=== PATIENT | male | born 1945 | race Caucasian/White ===

== ENCOUNTER → 2018-11-14 12:39 | Outpatient (CLI) | payer OTHER, SELFPAY ==
--- NOTE | 2018-11-14 | DI.ECHO.S_ITS ---
[place] +---------+ [facility] +---------+ : : [address] : [address] : : : : [id number] : : : : Phone: [phone]+ Echocardiogram Report + + :Name: RADHA GARCIA Study Date: 11/14/2018 Height: 69 in : :[facility] Exam Location: [facility] Weight: 177 lb : : Gender: Male BSA: 2.0 m2 : :: 1945 Age: 73 yrs BP: 135/60 mmHg: :Reason For Study: AFIB : : Performed By: Gavin George : :Referring: WILFRED SCHAEFFER : + + Interpretation Summary The ejection fraction is estimated to be 60-65%. Both atria are mildly dilated. There is mild to moderate mitral regurgitation. The right ventricular systolic pressure is estimated to be at least 28 mmHg based on an estimated right atrial pressure of 3 mm Hg. Procedure: A two-dimensional transthoracic echocardiogram with color flow and Doppler was performed. The study quality was technically good. There is no prior echocardiogram noted for this patient. The patient was in normal sinus rhythm during the exam. The patient was bradycardic with a heart rate of 50-60 beats per minute. Left Ventricle: The left ventricle is normal in size. There is normal left ventricular wall thickness. The ejection fraction is estimated to be 60-65%. There are no focal wall motion abnormalities. Right Ventricle: The right ventricle is at the upper limits of normal in size. The right ventricular systolic function is normal. Atria: Both atria are mildly dilated. The interatrial septum is intact with no evidence for an atrial septal defect. Mitral Valve: The mitral valve is normal in structure and function. The mitral valve leaflets are slightly calcified. There is mild to moderate mitral regurgitation. Aortic Valve: The aortic valve is trileaflet. The aortic valve opens well. No aortic regurgitation is present. Tricuspid Valve: The tricuspid valve is normal in structure and function. There is trace tricuspid regurgitation. The right ventricular systolic pressure is estimated to be at least 28 mmHg based on an estimated right atrial pressure of 3 mm Hg. Pulmonic Valve: The pulmonic valve is normal in structure and function. There is trace pulmonic regurgitation. Great Vessels: The aortic root is normal size. The ascending aorta is mildly enlarged. The pulmonary artery is normal size. The IVC is of normal diameter and collapses greater than 50% with a sniff. This suggests a low right atrial pressure of 3 mm Hg. Pericardium/ Pleura There is no pericardial effusion. There is no pleural effusion. MMode/2D Measurements & Calculations LVIDd: 5.6 cm LVOT diam: 2.3 cm LVIDs: 3.5 cm Ao root diam: 3.4 cm FS: 38.5 % Aortic Jxn: 2.7 cm EPSS: 0.42 cm asc Aorta Diam: 3.6 cm IVSd: 0.71 cm Ao Arch Diam (Prox Trans): 2.7 cm LVPWd: 0.78 cm LV brock. diameter/BSA (cm/m^2): 2.9 LV sys. diameter/BSA (cm/m^2): 1.8 LA dimension: 3.7 cm RA long axis: 4.9 cm LA A2 area: 24.2 cm2 RA area: 20.4 cm2 LA A4 area: 23.8 cm2 RA vol: 72.4 ml LA length (vol): 6.5 cm RA : 36.9 ml/m2 LA vol: 75.2 ml IVC diam: 1.8 cm LA vol index: 38.4 ml/m2 RVD1 (basal): 4.7 cm RVD2 (mid): 4.5 cm Doppler Measurements & Calculations Ao V2 max: 152.7 cm/sec LVOT Max Anil: 99.5 cm/sec Ao V2 mean: 115.8 cm/sec LV V1 max P.0 mmHg Ao max P.3 mmHg LV V1 VTI: 23.6 cm Ao mean P.6 mmHg WILLIAM(I,D): 2.5 cm2 Ao V2 VTI: 37.3 cm WILLIAM(V,D): 2.6 cm2 sev ratio: 0.63 WILLIAM indexed to BSA (cm^2/m^2): 1.3 MV E max anil: 76.7 cm/sec TR max anil: 248.4 cm/sec MV A max anil: 65.0 cm/sec TR max P.7 mmHg MV E/A: 1.2 PA V2 max: 80.4 cm/sec Med Peak E' Anil: 6.6 cm/sec PA V2 mean: 52.6 cm/sec E/E' med: 11.6 PA mean P.3 mmHg Lat Peak E' Anil: 8.7 cm/sec PA pr(Accel): 26.6 mmHg E/E' lat: 8.8 PA Accel Time: 0.12 sec E/e' average: 10.2 MV dec time: 0.20 sec SV(LVOT): 94.8 ml Reading Physician:03:42 PM
== END ==
PROVIDERS: Visit Provider Physician Assistant
DX: I34.0 Nonrheumatic mitral (valve) insufficiency (principal); I48.91 Unspecified atrial fibrillation; I77.89 Other specified disorders of arteries and arterioles
CPT/HCPCS: 93306